=== PATIENT | male | born 1995 | race Two or more races ===

== ENCOUNTER 2021-05-23 20:30 | Emergency (ER) | payer MEDICAID, OTHER ==
[~2021-05-23] VITALS: Ht 165.1 cm; Wt 63.6 kg
[2021-05-23 22:40] VITALS: BP 124/79
== END 2021-05-23 23:05 | disposition home or self-care (01) ==
LOC: EMS 20:30
DX: F15.10 Other stimulant abuse, uncomplicated (principal); F17.210 Nicotine dependence, cigarettes, uncomplicated
CPT/HCPCS: 99284; Z7502